=== PATIENT | female | born 1965 | race Caucasian/White ===

== ENCOUNTER → 2020-07-29 | Outpatient (CLI) | payer OTHER ==
--- NOTE | 2020-07-29 10:34 | KCIC ---
EXAMINATION: Magnetic resonance imaging (MRI) of the lumbar spine without contrast 07/29/2020 8:11 AM HISTORY: Back spasm. Chronic low back pain. Bilateral lower extremity shaking. TECHNIQUE: Multiplanar multi-weighted MRI of the lumbar spine was performed without intravenous contr ast using the standard lumbar spine protocol. Contrast information: None administered. COMPARISON: None available. FINDINGS: One of the lumbar spine is normal. Vertebral bodies demonstrate normal signal intensity on all sequen geoff. There are no compression fractures. The conus medullaris terminates at the level of L1. The di stal spinal cord signal intensity is normal. This desiccation with annular fissure at T12-L1. There is mild disc desiccation at L3-L4 and L4-L5 without significant height loss. Indeterminate right adre nal nodule measures 1.4 x 1.2 cm.. The aorta is normal. T12-L1: There is a sequential disc bulge with central disc extrusion. There is no significant neurofo raminal stenosis. Mild to moderate spinal canal stenosis without compression of the conus. L1-L2: The disc is normal in configuration. There is no facet arthropathy. There is no neuroforaminal stenosis. There is no spinal canal stenosis. L2-L3: The disc is normal in configuration. There is no facet arthropathy. There is no neuroforaminal stenosis. There is no spinal canal stenosis. L3-L4: There is mild disc bulge. Mild facet arthropathy with ligamentum flavum infolding. Mild bilate ral neuroforaminal stenosis. Spinal canal stenosis. L4-L5: There is a disc bulge asymmetric to the right. Moderate facet arthropathy. Mild left neurofora hernan stenosis. The spinal canal stenosis. L5-S1: Mild disc bulge asymmetric to the left. Mild facet arthropathy. No neuroforaminal or spinal ca nal stenosis. IMPRESSION: Mild degenerative changes of the lumbar spine as described in detail above. Indeterminate right adrenal nodule measures 1.4 x 1.2 cm. Nonemergent adrenal mass protocol CT could be of benefit. Electronically signed by: Massiel Amos MD (07/29/2020 10:32 AM) [id number]
== END ==
LOC: KCIC MRI 08:00
PROVIDERS: ATTEND Family Medicine
DX: M47.816 Spondylosis without myelopathy or radiculopathy, lumbar region (principal); M62.830 Muscle spasm of back
CPT/HCPCS: 72148

== ENCOUNTER → 2020-11-13 | Outpatient (CLI) | payer OTHER ==
--- NOTE | 2020-11-14 09:27 | KCIC ---
MRI BRAIN WO Date: 11/13/2020 3:25 PM Indication: Left facial droop. Chronic Lt facial droop, getting worse. Comparison: None. Technique: Multiplanar multisequence MRI of the brain was performed without intravenous contrast usin g the standard protocol. Findings: No acute infarct. No acute or chronic hemorrhage. The ventricles are normal in size and configuration without hydrocephalus. Mild scattered FLAIR hyperintensities in the subcortical and periventricular deep white matter, a nonspecific finding, most commonly seen with chronic small vessel ischemic disea se. The scalp and calvarium are normal. The pituitary and sella are normal. No Chiari malformation. Mild incompletely characterized degenerative spondylosis of the visualized upper cervical spine. The visualized orbits and globes are normal. The visualized paranasal sinuses are clear. The mastoid air cells are clear. Normal flow voids within the vertebral, basilar, and internal carotid arteries indicating patency. IMPRESSION: 1. No acute infarct, hemorrhage, mass, or hydrocephalus. 2. Mild scattered FLAIR hyperintensities in the subcortical and periventricular deep white matter, a nonspecific finding, most commonly seen with chronic small vessel ischemic disease. Electronically signed by: Melchor Hsieh MD (11/14/2020 9:25 AM) [facility]
== END ==
LOC: KCIC MRI 15:04
PROVIDERS: ATTEND Family Medicine
DX: I99.8 Other disorder of circulatory system (principal); M47.812 Spondylosis without myelopathy or radiculopathy, cervical region; R29.810 Facial weakness
CPT/HCPCS: 70551